=== PATIENT | female | born 1985 | race Caucasian/White ===

== ENCOUNTER 2016-12-12 23:09 | Emergency (ER) | payer OTHER ==
[~2016-12-12] VITALS: Ht 162.6 cm; Wt 60.8 kg
[~2016-12-12 23:09] MED LIST: BACTRIM DS1 TAB PO; CARISOPRODOL350 MG PO; CIPRO500 MG OR; CLEOCIN150 MG PO; CLINDAMYCIN300 M1 PO; DIFLUCAN150 MG PO; DILAUDID2 MG PO; DOLOGESIC OR; FLAGYL500 MG PO; FLEXERIL OR; FLORASTOR250 M1 PO; IBUPROFEN200 MG OR; KEFLEX500 M1 PO; LEVAQUIN500 MG PO; MACRODANTIN100 MG PO; METHADONE5 M1 PO; METRONIDAZOL0.75 % VA; NAPROSYN500 MG OR; NITROSTAT0.4 MG PO; NO HOME MEDS; NO MEDS; PHENERGAN25 MG/TAB PO; PRENATAL1 TA1 PO; TRAMADOL HCL50 MG PO; TYLENOL PM OR; ULTRAM50 M1 PO; ULTRAM50 MG OR
[2016-12-12] MEDS ORDERED: FOLIC ACI1 PO (23:32)
[2016-12-13 00:35] LABS: HEMATOCRIT 32.6 % (37.0-47.0); HEMOGLOBIN 10.3 g/dl (12.0-16.0); IMMATURE GRANULOCYTES 0.1 % (0.0-1.0); MEAN CELL VOLUME 78.7 fL CALC (80.0-100.0); MEAN CORPUSCULAR HGB 24.9 pG CALC (26.0-32.0); MEAN CORPUSCULAR HGB CONC 31.6 g/L CALC (32.0-36.0); NEUT# 3.07 thou/uL (2.00-7.15); RED BLOOD COUNT 4.14 mill/uL (4.20-5.60); RED CELL DISTRI WIDTH 13.2 % (11.5-15.5)
[2016-12-13 00:52] LABS: ALBUMIN 3.9 g/dL (3.2-5.0); ALKALINE PHOSPHATASE 112 u/l (38-126); ANION GAP 18 (6-22 (CALC)); BILIRUBIN, TOTAL 0.4 mg/dL (0.0-1.4); BUN 15 mg/dL (7-17); BUN/CREATININE RATIO 21 (12-20 (CALC)); CALCIUM 9.5 mg/dL (8.4-10.2); CARBON DIOXIDE 26 mmol/l (22-30); CHLORIDE 104 mmol/l (95-108); CREATININE 0.7 mg/dL (0.5-1.0); GFR > 60 ML/MIN (>=60 (CALC)); GFR FOR AFR.AMER. > 60 ML/MIN (>=60 (CALC)); GLUCOSE 123 mg/dL (65-105); SGOT/AST 29 u/l (14-36); SGPT/ALT 31 u/l (9-52); SODIUM 144 mmol/l (137-146); TOTAL PROTEIN 7.9 g/dL (6.3-8.2)
[2016-12-13] MEDS ORDERED: BACTRIM DS1 TAB PO (01:29)
[2016-12-13 05:07] VITALS: BP 128/81
== END 2016-12-13 05:07 | disposition home or self-care (01) | DRG 603 ==
LOC: ED 23:09
PROVIDERS: Emergency Medicine
DX: L02.413 Cutaneous abscess of right upper limb (principal); F11.90 Opioid use, unspecified, uncomplicated; R50.9 Fever, unspecified

== ENCOUNTER 2019-02-09 22:33 | Emergency (ER) | payer SELFPAY ==
[~2019-02-09] VITALS: Ht 162.6 cm; Wt 90.9 kg
[~2019-02-09 22:33] MED LIST changes: +FOLIC ACI1 PO
[2019-02-10] LABS: URINE BILIRUBIN - DIPSTICK NEGATIVE (NEGATIVE); URINE BLOOD DIPSTICK SMALL (NEGATIVE); URINE GLUCOSE - DIPSTICK NEGATIVE (NEGATIVE); URINE KETONE NEGATIVE (NEGATIVE); URINE LEUK ESTERASE TRACE (NEGATIVE); URINE PH 5.5 (4.5-8.0); URINE PROTEIN - DIPSTICK TRACE mg/dL (NEG-TRACE)
[2019-02-10 00:01] LABS: IMMATURE GRANULOCYTES 0.9 % (0.0-5.0); MEAN CORPUSCULAR HGB CONC 32.3 g/L CALC (32.0-36.0); NEUT# 6.84 thou/uL (2.00-7.15); RED BLOOD COUNT 4.7 mill/uL (4.20-5.60); RED CELL DISTRI WIDTH 12.6 % (11.5-15.5)
[2019-02-10 00:09] LABS: URINE COLOR DK. YELLOW; URINE NITRITE - DIPSTICK POSITIVE (Negative)
[2019-02-10 00:10] LABS: URINE BACTERIA MANY hpf; URINE EPITHELIAL CELLS MODERATE EPI/hpf (0-FEW)
[2019-02-10 00:12] LABS: ALBUMIN 4.1 g/dL (3.2-5.0); AMYLASE 46 u/l (30-110); ANION GAP 15 (6-22 (CALC)); BILIRUBIN, TOTAL 0.6 mg/dL (0.0-1.4); BUN 7 mg/dL (7-17); BUN/CREATININE RATIO 11 (12-20 (CALC)); CARBON DIOXIDE 28 mmol/l (22-30); CHLORIDE 100 mmol/l (95-108); CREATININE 0.7 mg/dL (0.5-1.0); GFR > 60 ML/MIN (>=60 (CALC)); GFR FOR AFR.AMER. > 60 ML/MIN (>=60 (CALC)); LIPASE 106 u/l (23-300); POTASSIUM 3.6 mmol/l (3.5-5.1); SODIUM 140 mmol/l (137-146); TOTAL PROTEIN 7.4 g/dL (6.3-8.2)
[2019-02-10 00:14] LABS: ALKALINE PHOSPHATASE 241 u/l (38-126); HEMATOCRIT 39.3 % (37.0-47.0); HEMOGLOBIN 12.7 g/dl (12.0-16.0); MEAN CELL VOLUME 83.6 fL CALC (80.0-100.0); SGOT/AST 59 u/l (14-36)
[2019-02-10 03:45] VITALS: BP 130/64
== END 2019-02-10 03:41 | disposition left against medical advice (07) | DRG 395 ==
LOC: ED 22:33 → ED-I 02-10 03:12 → ED 02-10 03:41 → ED-I 02-10 12:44
PROVIDERS: Emergency Medicine
DX: K46.9 Unspecified abdominal hernia without obstruction or gangrene (principal); F17.210 Nicotine dependence, cigarettes, uncomplicated; Z91.19 Patient's noncompliance with other medical treatment and regimen; R82.71 Bacteriuria
CPT/HCPCS: J1956; Q9967

== ENCOUNTER 2019-02-10 10:50 | Inpatient (IN) | payer SELFPAY ==
[2019-02-10] VITALS (8 sets, daily range): BP systolic 103–132; BP diastolic 68–89
[~2019-02-10] VITALS: Ht 162.6 cm; Wt 95.0 kg
--- NOTE | 2019-02-10 10:59 | NUR ---
PT TO ROOM W/STEADY GAIT
--- NOTE | 2019-02-10 11:32 | NUR ---
PT SEEN BY EDP, HERNIA NOTED TO ABDOMINAL REGION.
--- NOTE | 2019-02-10 12:16 | NUR ---
PT DIFFICULT IV STICK PER IV DRUG ABUSE. PT STATES SHE USES CRUSHED OXY AND MOST RECENTLY USED ABOUT A WEEK AGO. PT PROVIDED TORADOL FOR PAIN ORDERED BY EDP.
--- NOTE | 2019-02-10 12:27 | NUR ---
PT LEAVES WITH OR TEAM KENN.
[2019-02-10 12:36] LABS: COCAINE NEGATIVE (NEGATIVE); TETRAHYDROCANNABIONOL NEGATIVE (NEGATIVE)
[2019-02-10 12:37] LABS: BARBITURATES NEGATIVE (NEGATIVE); METHADONE NEGATIVE (NEGATIVE); OXCYCODONE POSITIVE (NEGATIVE); TRICYLIC ANTIDEPRESSANTS NEGATIVE (NEGATIVE)
--- NOTE | 2019-02-10 15:53 | NUR ---
PT TRANSPORTED TO UNIT VIA STRETCHER AND TRANSFERRED TO BED BY OR STAFF. ALERT AND ORIENTED X 3, ASKING IF SHE MAY GO HOME NOW AND ADVISED OF REASON SHE CANT. TRIPLE LUMEN CATHETER IN PLACE TO RIGHT JUGULAR WITH LR INFUSING, MIDLINE INCISION TO ABD APPROXIMATED WITH SURGICAL GLUE, DRESSING TO LEFT FOREARM IN PLACE WITH SANTY WRAP. OR STAFF REPORTED INCISION AND DRAINAGE OF ABSCESS TO LFA AND VENTRAL HERNIA REPAIR TO ABDOMEN, IV FLUIDS IN = 450 AND OUT = 250. DAILY CATHETER IN PLACE WITH CLEAR YELLOW URINE. ORIENTED TO ROOM AND CALL ALEXANDER, REQUESTING FOOD AT THIS TIME, WILL CONTINUE TO MONITOR. PT ARRIVED ON UNIT @ 0320.
--- NOTE | 2019-02-10 16:49 | NUR ---
In to start peripheral IV as requested by Dr Olsen. Pt refused to be "poked" again as she had been stuck several times in the ER, states she already has a working IV (central line) and there is no need to be stuck again. Pt states she is aware that the police will be called if she leaves with a peripheral and/or a central line.
[2019-02-10 17:08] LABS: HEMATOCRIT 35.4 % (37.0-47.0); HEMOGLOBIN 11.1 g/dl (12.0-16.0); IMMATURE GRANULOCYTES 0.8 % (0.0-5.0); MEAN CELL VOLUME 86.6 fL CALC (80.0-100.0); MEAN CORPUSCULAR HGB 27.1 pG CALC (26.0-32.0); MEAN CORPUSCULAR HGB CONC 31.4 g/L CALC (32.0-36.0); NEUT# 4.48 thou/uL (2.00-7.15); RED BLOOD COUNT 4.09 mill/uL (4.20-5.60); RED CELL DISTRI WIDTH 12.8 % (11.5-15.5)
[2019-02-10 18:11] LABS: ALKALINE PHOSPHATASE 167 u/l (38-126); ANION GAP 10 (6-22 (CALC)); BILIRUBIN, TOTAL 0.4 mg/dL (0.0-1.4); BUN 6 mg/dL (7-17); BUN/CREATININE RATIO 10 (12-20 (CALC)); CARBON DIOXIDE 24 mmol/l (22-30); CHLORIDE 107 mmol/l (95-108); CREATININE 0.6 mg/dL (0.5-1.0); GFR > 60 ML/MIN (>=60 (CALC)); GFR FOR AFR.AMER. > 60 ML/MIN (>=60 (CALC)); POTASSIUM 3.7 mmol/l (3.5-5.1); SGOT/AST 39 u/l (14-36); SODIUM 138 mmol/l (137-146)
--- NOTE | 2019-02-10 19:35 | NUR ---
REPORT RECEIVED FROM SARAHI MARCUM. PT RESTING IN BED, WITH EYES CLOSED. NO S/S OF DISTRESS AT THIS TIME. SAFETY PRECAUTIONS IN PLACE. WILL CONTINUE TO MONITOR.
--- NOTE | 2019-02-10 20:32 | NUR ---
PT RESTING IN BED, PT SEEMS DROWSY. RESPIRATIONS ARE SHIRLEY AND UNLABORED ON RA. LUNGS SOUND CLEAR. PEDAL PULSES STRONG. PT DENIES ANY NEEDS AT THIS TIME. NICOTINE PATCH APPLIED TO UPPER RIGHT ARM PER EMAR ORDERS. INCISION TO ABD CLEAN DRY AND INTACT. DAILY DRAINING TO GRAVITY. SAFETY PRECAUTIONS IN PLACE. WILL CONTINUE TO MONITOR.
--- NOTE | 2019-02-11 00:20 | NUR ---
PT RESTING IN BED. RESPIRATIONS EVEN AND UNLABORED ON RA. NO S/S OF DISTRESS. WILL CONTINUE TO MONITOR.
[2019-02-11 03:58] VITALS: BP 131/83
--- NOTE | 2019-02-11 04:09 | NUR ---
PT MOANING IN PAIN STATING " I'M DETOXING". ASSISTED PT TO REPOSITION AND PROVIDED HER WITH WARM PACKS. PT CONTINUES TO MOAN STATING "I HURT I'M GOING TO THROW UP, I'M DETOXING." TO BE NOTIFIED. WILL CONTINUE TO MONITOR.
[2019-02-11 05:03] LABS: HEMOGLOBIN 12.7 g/dl (12.0-16.0); IMMATURE GRANULOCYTES 0.6 % (0.0-5.0); MEAN CELL VOLUME 84.9 fL CALC (80.0-100.0); MEAN CORPUSCULAR HGB CONC 31.8 g/L CALC (32.0-36.0); NEUT# 6.71 thou/uL (2.00-7.15); RED BLOOD COUNT 4.71 mill/uL (4.20-5.60); RED CELL DISTRI WIDTH 12.8 % (11.5-15.5)
[2019-02-11 05:21] LABS: ALBUMIN 3.6 g/dL (3.2-5.0); ALKALINE PHOSPHATASE 201 u/l (38-126); AMYLASE 51 u/l (30-110); ANION GAP 10 (6-22 (CALC)); BILIRUBIN, TOTAL 0.5 mg/dL (0.0-1.4); BUN 2 mg/dL (7-17); BUN/CREATININE RATIO 4 (12-20 (CALC)); CARBON DIOXIDE 24 mmol/l (22-30); CHLORIDE 109 mmol/l (95-108); CREATININE 0.6 mg/dL (0.5-1.0); GFR > 60 ML/MIN (>=60 (CALC)); GFR FOR AFR.AMER. > 60 ML/MIN (>=60 (CALC)); LIPASE 44 u/l (23-300); MAGNESIUM 1.8 mg/dL (1.6-2.3); POTASSIUM 4.1 mmol/l (3.5-5.1); SGOT/AST 38 u/l (14-36); SODIUM 139 mmol/l (137-146); TOTAL PROTEIN 6.9 g/dL (6.3-8.2)
--- NOTE | 2019-02-11 07:00 | NUR ---
SHIFT CHANGE REPORT, PT SLEEPING SOUNDLY, AROUSES TO GROSS VERBAL STIMULI, ORIENTED, NO C/O DISCOMFORT AT THIS TIME, OFFERED TO SHOWER BUT STATED SHE WILL SHOWER LATER WHEN HER MOTHER ARRIVES, CALL ALEXANDER IN REACH.
[2019-02-11 07:36] VITALS: BP 113/77
--- NOTE | 2019-02-11 11:06 | NUR ---
PT SLEEPING SOUNDLY SINCE BREAKFAST, AWAKENED, AMBULATED IN HALLWAYS THEN BACK TO ROOM. EDUCATED ON RISK FOR INFECTION POST SURGERY AND WITH CATHETER PLACEMENT, RISK FOR PNEUMONIA AND RISK FOR CONSTIPATION. INCENTIVE SPIROMETER GIVEN AND PT DEMONSTRATED CORRECT USAGE AND ENCORAGED TO USE EVERY HOUR WHILE AWAKE, DAILY CATHETER REMOVED, PAIN CONCERN ADDRESSED. MOTHER JUST ARRIVED IN ROOM, WILL CONTINUE TO MONITOR.
--- NOTE | 2019-02-11 12:00 | NUR ---
MEDICAL TEAM ROUNDED, DISCUSSED PLAN OF CARE AND WROTE ORDERS
--- NOTE | 2019-02-11 14:38 | NUR ---
S: CARMEL GARSIA is a 33 F who presents with CELLULITIS. She has a history of MULTIPLE SKIN ABSCESSES. All medications in patient's chart were reviewed. O: VS: BP 113/77, P 78, RR 18,T 97 W 95kg, HT 64IN, Scr= 0.6,CrCl= >100ml/min> A: Blood culture <is pending/show> which is sensitive to <>. Urine culture <is pending/show> which is sensitive to <>. P: Vancomycin ordered for pharmacy to dose. Start Vancomycin 1750MG IV Q12H. Vancomycin trough is drawn before the 4th dose on 02/12/19 @1230. Vancomycin goal trough is between <10-15 mcg/ml>. Pharmacy will follow and or advise on antibiotics use as needed. PRANEETH CURTISD
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
[2019-02-11 15:21] VITALS: BP 117/77
--- NOTE | 2019-02-11 16:10 | NUR ---
LYING IN BED, ADVISED TO GET OOB AND AMBULATE, DRESSING TO LFA CHANGED, WILL CONTINUE TO MONITOR.
--- NOTE | 2019-02-11 17:47 | NUR ---
AMBULATED 2 HALLWAYS WITH SUPERVISION, HAS NOT URINATED YET SINCE CATHETER REMOVED @ 1100, WILL CONTINUE TO MONITOR.
--- NOTE | 2019-02-11 19:05 | NUR ---
REPORT RECEIVED FROM SARAHI MARCUM. PT RESTING IN BED ALERT AND ORIENTED, FAMILY AT BEDSIDE. NO S/S OF DISTRESS AT THIS TIME. WILL CONTINUE TO MONITOR.
[2019-02-11 19:15] VITALS: BP 120/78
--- NOTE | 2019-02-11 23:39 | NUR ---
PT SITTING ON THE SIDE OF THE BED. PT STATES "I FEEL NAUSEOUS, AND I HURT". PT MEDICATED PER EMAR ORDERS. WILL CONTINUE TO MONITOR.
[2019-02-12 04:07] VITALS: BP 100/67
--- NOTE | 2019-02-12 04:27 | NUR ---
PT RESTING IN BED. NO S/S OF DISTRESS AT THIS TIME. WILL CONTINUE TO MONITOR.
[2019-02-12 05:28] LABS: HEMATOCRIT 40.6 % (37.0-47.0); IMMATURE GRANULOCYTES 0.7 % (0.0-5.0); MEAN CELL VOLUME 86.2 fL CALC (80.0-100.0); MEAN CORPUSCULAR HGB 27.6 pG CALC (26.0-32.0); NEUT# 4.93 thou/uL (2.00-7.15); RED BLOOD COUNT 4.71 mill/uL (4.20-5.60); RED CELL DISTRI WIDTH 12.9 % (11.5-15.5)
[2019-02-12 05:46] LABS: ALBUMIN 3.4 g/dL (3.2-5.0); ALKALINE PHOSPHATASE 205 u/l (38-126); ANION GAP 13 (6-22 (CALC)); BILIRUBIN, TOTAL 0.4 mg/dL (0.0-1.4); BUN 5 mg/dL (7-17); BUN/CREATININE RATIO 8 (12-20 (CALC)); CARBON DIOXIDE 26 mmol/l (22-30); CHLORIDE 105 mmol/l (95-108); CREATININE 0.7 mg/dL (0.5-1.0); GFR > 60 ML/MIN (>=60 (CALC)); GFR FOR AFR.AMER. > 60 ML/MIN (>=60 (CALC)); POTASSIUM 3.9 mmol/l (3.5-5.1); SGOT/AST 39 u/l (14-36); SODIUM 140 mmol/l (137-146); TOTAL PROTEIN 6.6 g/dL (6.3-8.2)
[2019-02-12 08:10] VITALS: BP 112/81
--- NOTE | 2019-02-12 08:10 | NUR ---
ASSESSMENT IS COMPLETED: IV SITE IS FREE FROM REDNESS OR EDEMA. HR IS REG,PULSES ARE STRONG X4, ABD IS SOFT WITH ACTIVE BS. BREATH SOUNDS ARE CLEAR BILATERALLY, DRESSING ON LEFT ARM IS CDI. ABD INCISION IS CDI. C/O ABD PAIN MEDICATION WAS GIVEN.
[2019-02-12] MEDS ORDERED: KEFLEX500 MG PO (12:06)
--- NOTE | 2019-02-12 12:15 | NUR ---
PT IS RESTING IN BED WITH NO DISTRESS NOTED. IV SITE IS FREE FROM REDNESS OR EDEMA. WAITING ON DISCHARGE INSTRUCTION TO GO HOME.
--- NOTE | 2019-02-12 14:00 | NUR ---
Discharge instructions given. Patient verbalizes understanding of same. Discharged in stable condition via Ambulatory to Home with family. All belongings sent with pt.
--- NOTE | 2019-02-12 14:03 | NUR ---
IV SITE DISCONTINUED CATHETER INTACT. NO REDNESS OR EDEMA. DISCHARGE INSTRUCTIONS GIVEN AND VERBALIZED UNDERSTANDING,
--- NOTE | 2019-02-12 14:04 | NUR ---
RIJ TLC FLUSHED AND REMOVED, CATH TIP INTACT. PT TOLERATED WELL. DRESSING APPLED.
== END 2019-02-12 14:02 | disposition home or self-care (01) | DRG 354 ==
LOC: ED 10:50 → ED-I 11:20 → ED 11:20 → ED-I 11:24 → ED 11:39 → MS2 11:40 → UNDODEPER 12:56 → MS2 02-11 12:37
PROVIDERS: Nurse Practitioner Family; ADMIT Internal Medicine Nephrology; ATTEND Internal Medicine Nephrology
PROC: 0WQF0ZZ Repair Abdominal Wall, Open Approach (ICD-10-PCS; principal; 2019-02-10)
PROC: 0H9EXZZ Drainage of Left Lower Arm Skin, External Approach (ICD-10-PCS; 2019-02-10)
PROC: 02HV33Z Insertion of Infusion Device into Superior Vena Cava, Percutaneous Approach (ICD-10-PCS; 2019-02-10)
DX: K43.6 Other and unspecified ventral hernia with obstruction, without gangrene (principal); L02.414 Cutaneous abscess of left upper limb; L03.115 Cellulitis of right lower limb; N39.0 Urinary tract infection, site not specified; F11.23 Opioid dependence with withdrawal; F15.23 Other stimulant dependence with withdrawal; F19.239 Other psychoactive substance dependence with withdrawal, unspecified; F17.210 Nicotine dependence, cigarettes, uncomplicated; B19.20 Unspecified viral hepatitis C without hepatic coma; B96.20 Unspecified Escherichia coli [E. coli] as the cause of diseases classified elsewhere; Z86.718 Personal history of other venous thrombosis and embolism
CPT/HCPCS: J2710; J3370

== ENCOUNTER 2019-04-30 17:39 | Emergency (ER) | payer SELFPAY ==
[~2019-04-30] VITALS: Ht 162.6 cm; Wt 86.0 kg
[~2019-04-30 17:39] MED LIST changes: +KEFLEX500 MG PO
[2019-04-30] MEDS ORDERED: BACTRIM DS1 TAB PO (18:59)
[2019-04-30] MEDS ORDERED: OMNI-PAC300 MG PO (18:59)
[2019-04-30 19:06] VITALS: BP 120/78
== END 2019-04-30 19:08 | disposition left against medical advice (07) | DRG 603 ==
LOC: ED 17:39
DX: L03.311 Cellulitis of abdominal wall (principal); L03.114 Cellulitis of left upper limb; L53.9 Erythematous condition, unspecified; F17.210 Nicotine dependence, cigarettes, uncomplicated; F15.90 Other stimulant use, unspecified, uncomplicated; Z91.19 Patient's noncompliance with other medical treatment and regimen

== ENCOUNTER 2019-05-02 16:33 | Emergency (ER) | payer SELFPAY ==
[~2019-05-02] VITALS: Ht 162.6 cm; Wt 70.0 kg
[~2019-05-02 16:33] MED LIST changes: +OMNI-PAC300 MG PO
[2019-05-02 17:26] LABS: HEMATOCRIT 35.3 % (37.0-47.0); HEMOGLOBIN 11.4 g/dl (12.0-16.0); IMMATURE GRANULOCYTES 0.4 % (0.0-5.0); MEAN CORPUSCULAR HGB 25.9 pG CALC (26.0-32.0); MEAN CORPUSCULAR HGB CONC 32.3 g/L CALC (32.0-36.0); NEUT# 10.57 thou/uL (2.00-7.15); RED BLOOD COUNT 4.4 mill/uL (4.20-5.60); RED CELL DISTRI WIDTH 12.8 % (11.5-15.5)
[2019-05-02 17:28] LABS: MEAN CELL VOLUME 80.2 fL CALC (80.0-100.0)
[2019-05-02 17:46] LABS: ALBUMIN 3.8 g/dL (3.2-5.0); ALKALINE PHOSPHATASE 103 u/l (38-126); ANION GAP 14 (6-22 (CALC)); BILIRUBIN, TOTAL 0.3 mg/dL (0.0-1.4); BUN 10 mg/dL (7-17); BUN/CREATININE RATIO 18 (12-20 (CALC)); CARBON DIOXIDE 25 mmol/l (22-30); CHLORIDE 101 mmol/l (95-108); CREATININE 0.6 mg/dL (0.5-1.0); GFR > 60 ML/MIN (>=60 (CALC)); GFR FOR AFR.AMER. > 60 ML/MIN (>=60 (CALC)); SGOT/AST 29 u/l (14-36); SODIUM 137 mmol/l (137-146); TOTAL PROTEIN 7.5 g/dL (6.3-8.2)
[2019-05-02 17:48] LABS: POTASSIUM 2.9 mmol/l (3.5-5.1)
[2019-05-02] MEDS ORDERED: K-DUR/KLOR-CON20 MEQ PO (17:58)
[2019-05-02] MEDS ORDERED: BACTRIM DS1 TAB PO (17:58)
[2019-05-02 18:50] VITALS: BP 133/79
== END 2019-05-02 18:57 | disposition home or self-care (01) | DRG 603 ==
LOC: ED 16:33
PROC: 0H9EXZZ Drainage of Left Lower Arm Skin, External Approach (ICD-10-PCS; principal; 2019-05-02)
DX: L02.414 Cutaneous abscess of left upper limb (principal); L03.311 Cellulitis of abdominal wall; L53.9 Erythematous condition, unspecified; F17.200 Nicotine dependence, unspecified, uncomplicated; B96.20 Unspecified Escherichia coli [E. coli] as the cause of diseases classified elsewhere; T36.96XA Underdosing of unspecified systemic antibiotic, initial encounter; Z91.128 Patient's intentional underdosing of medication regimen for other reason; F15.90 Other stimulant use, unspecified, uncomplicated

== ENCOUNTER 2019-05-03 16:32 | Emergency (ER) | payer SELFPAY ==
[~2019-05-03] VITALS: Ht 162.6 cm; Wt 84.1 kg
[~2019-05-03 16:32] MED LIST changes: +K-DUR/KLOR-CON20 MEQ PO
[2019-05-03 18:10] VITALS: BP 102/57
== END 2019-05-03 18:10 | disposition home or self-care (01) | DRG 603 ==
LOC: ED 16:32
DX: L03.116 Cellulitis of left lower limb (principal); Z48.01 Encounter for change or removal of surgical wound dressing; F15.90 Other stimulant use, unspecified, uncomplicated; F17.200 Nicotine dependence, unspecified, uncomplicated; Z91.19 Patient's noncompliance with other medical treatment and regimen

== ENCOUNTER 2019-05-05 16:14 | Emergency (ER) | payer SELFPAY ==
[~2019-05-05] VITALS: Ht 162.6 cm; Wt 76.4 kg
[2019-05-05 17:00] VITALS: BP 116/75
== END 2019-05-05 17:00 | disposition home or self-care (01) | DRG 951 ==
LOC: ED 16:14
DX: Z48.01 Encounter for change or removal of surgical wound dressing (principal)

== ENCOUNTER 2019-06-05 09:51 | Observation (INO) | payer SELFPAY ==
[~2019-06-05] VITALS: Ht 162.6 cm; Wt 87.0 kg
--- NOTE | 2019-06-05 10:35 | NUR ---
TO ROOM 12 VIA WHEELCHAIR
--- NOTE | 2019-06-05 11:00 | NUR ---
PT AMBUALATED TO BATHROOM WITH A STEADY GAIT TO CHANGE AND PROVIDE URINE SAMPLE.
--- NOTE | 2019-06-05 11:45 | NUR ---
ATTEMPTED IV STICK X2 WITHOUT SUCCESS, ENCOUNTERED VERY SCARRED VEINS AND INFLAMMATION AROUND POTENTIAL INSERTION SITES UP AND DOWN BOTH ARMS. CAMI MCMILLAN APRN UPDATED.
--- NOTE | 2019-06-05 11:51 | NUR ---
CHARANJIT ALMANZA AT BEDSIDE TO ATTEMPT IV ACCESS.
[2019-06-05 11:56] LABS: URINE BILIRUBIN - DIPSTICK NEGATIVE (NEGATIVE); URINE BLOOD DIPSTICK NEGATIVE (NEGATIVE); URINE COLOR YELLOW; URINE GLUCOSE - DIPSTICK NEGATIVE (NEGATIVE); URINE KETONE NEGATIVE (NEGATIVE); URINE LEUK ESTERASE NEGATIVE (NEGATIVE); URINE NITRITE - DIPSTICK NEGATIVE (Negative); URINE PROTEIN - DIPSTICK NEGATIVE (NEG-TRACE); URINE UROBILINOGEN - DIPSTICK 0.2 E.U./dL (0.2)
--- NOTE | 2019-06-05 12:09 | NUR ---
UNABLE TO ESTABLISH IV SITE. BLOOD COLLECTED WILL GIVE PO ABX.
--- NOTE | 2019-06-05 12:12 | NUR ---
REPORT RECEIVED FROM SARAHI MCQUEEN.
--- NOTE | 2019-06-05 12:12 | NUR ---
ERPORT TO SARAHI BRODERICK.
[2019-06-05 12:21] LABS: HEMATOCRIT 36.2 % (37.0-47.0); HEMOGLOBIN 11.4 g/dl (12.0-16.0); IMMATURE GRANULOCYTES 2.2 % (0.0-5.0); MEAN CELL VOLUME 79.9 fL CALC (80.0-100.0); MEAN CORPUSCULAR HGB 25.2 pG CALC (26.0-32.0); MEAN CORPUSCULAR HGB CONC 31.5 g/L CALC (32.0-36.0); PLATELET COUNT 284 thou/uL (130-400); RED BLOOD COUNT 4.53 mill/uL (4.20-5.60); RED CELL DISTRI WIDTH 13.9 % (11.5-15.5)
[2019-06-05 12:43] LABS: BAND 13 % (0-8); MANUAL DIFFERENTIAL YES
[2019-06-05 12:44] LABS: ALBUMIN 4.1 g/dL (3.2-5.0); ALKALINE PHOSPHATASE 111 u/l (38-126); ANION GAP 15 (6-22 (CALC)); BUN 15 mg/dL (7-17); BUN/CREATININE RATIO 20 (12-20 (CALC)); CARBON DIOXIDE 24 mmol/l (22-30); CHLORIDE 100 mmol/l (95-108); CREATININE 0.8 mg/dL (0.5-1.0); GFR > 60 ML/MIN (>=60 (CALC)); GFR FOR AFR.AMER. > 60 ML/MIN (>=60 (CALC)); POTASSIUM 4.1 mmol/l (3.5-5.1); SGOT/AST 32 u/l (14-36); SODIUM 135 mmol/l (137-146); TOTAL PROTEIN 7.9 g/dL (6.3-8.2)
[2019-06-05 12:45] LABS: BILIRUBIN, TOTAL 1.1 mg/dL (0.0-1.4)
--- NOTE | 2019-06-05 12:50 | NUR ---
PATIENT RESTING ON STRETCHER, NOTED TO BE DROWSY. REDNESS NOTED TO RIGHT INNER THIGH AND LEFT POSTERIOR THIGH. REPORTS ONSET A FEW DAYS AGO.
--- NOTE | 2019-06-05 12:53 | NUR ---
CHARANJIT ALMANZA AT BEDSIDE TO DISCUSS RESULTS WITH PATIENT AND POSSIBLE ADMIT.
[2019-06-05 13:19] LABS: BARBITURATES NEGATIVE (NEGATIVE); COCAINE NEGATIVE (NEGATIVE); METHADONE NEGATIVE (NEGATIVE); TETRAHYDROCANNABIONOL NEGATIVE (NEGATIVE); TRICYLIC ANTIDEPRESSANTS NEGATIVE (NEGATIVE)
[2019-06-05 13:20] LABS: OXCYCODONE POSITIVE (NEGATIVE)
--- NOTE | 2019-06-05 14:06 | NUR ---
REPORT CALLED TO LIZA FUNG.
--- NOTE | 2019-06-05 14:08 | NUR ---
RXO RN AT BEDSIDE TO ATTEMPT AND ESTABLISH IV SITE WITH ASSISTANCE FROM ULTRASOUND. PATIENT YELLING OUT IN PAIN STATES "GET THIS NEEDLE OUT I WANT TO LEAVE." INFORMED.
--- NOTE | 2019-06-05 14:20 | NUR ---
PATIENT AGREES TO STAY IF MIDLINE PLACE.
--- NOTE | 2019-06-05 14:45 | NUR ---
MULTIPLE ATTMEPTS MADE TO OBTAIN IV ACCESS, WITHOUT SUCCESS. PT CURSING AND ALTERNATES BETWEEN TALKINGON TELEPHONE AND YESSLING AT STAFF FOR INABILITY TO OBTAIN IV ACCESS. STATES SHE IS FUCKING LEAVING SHE AIN'T GONNA STAY IF WE CAN'T GET A FUCKIING LINE WHATS THE POINT, I GET ONE ALL THE TIME WHEN I USE I DON'T KNOW WHY YOU ALL CAN'T GET ONE....ATTEMPTS TO EXPLAIN TO PATIENT THAT SHOOTING UP DRUGS AND STARTING AN IVARE DIFFERENT, PT JUST MUTTERS AND IGNORES US ANS STATES WELL IT FUCKING HURTS AND I'M DONE.
[2019-06-05 14:48] VITALS: BP 98/56
--- NOTE | 2019-06-05 14:48 | NUR ---
PATIENT REFUSING TO STAY, OUT OF DEPARTMENT VIA WHEELCHAIR. Patient decides to leave AMA. Multiple attempts made to ecourage patient to remain here for continued treatment. Explained to patient all risks of leaving against medical advice including . Pt verbalized understanding of all risks. Pt also encouraged to return to [facility] at any time, especially if symptoms continue or become worse. Pt verbalized understanding.
== END 2019-06-05 14:48 | disposition left against medical advice (07) | DRG 603 ==
LOC: ED 09:51 → MS2 13:03 → ED 13:16 → ED-I 13:16 → ED 13:17 → ED-I 13:17 → MS2 14:48
PROVIDERS: Family Medicine; ADMIT Internal Medicine; ATTEND Internal Medicine
DX: L03.115 Cellulitis of right lower limb (principal); L03.114 Cellulitis of left upper limb; F19.20 Other psychoactive substance dependence, uncomplicated; Z53.29 Procedure and treatment not carried out because of patient's decision for other reasons

== ENCOUNTER 2019-07-21 11:50 | Emergency (ER) | payer SELFPAY ==
[~2019-07-21] VITALS: Ht 162.6 cm; Wt 90.0 kg
[2019-07-21] MEDS ORDERED: BACTRIM DS1 TAB PO ×2 (12:14→14:06)
[2019-07-21] MEDS ORDERED: CEPHALEXIN500 MG PO (12:15)
[2019-07-21] MEDS ORDERED: LORTAB 1010 MG PO (14:06)
[2019-07-21 14:12] LABS: HEMATOCRIT 34.4 % (37.0-47.0); HEMOGLOBIN 10.7 g/dl (12.0-16.0); IMMATURE GRANULOCYTES 1.8 % (0.0-5.0); MEAN CELL VOLUME 78.4 fL CALC (80.0-100.0); MEAN CORPUSCULAR HGB 24.4 pG CALC (26.0-32.0); MEAN CORPUSCULAR HGB CONC 31.1 g/L CALC (32.0-36.0); NEUT# 9.86 thou/uL (2.00-7.15); RED BLOOD COUNT 4.39 mill/uL (4.20-5.60); RED CELL DISTRI WIDTH 14.8 % (11.5-15.5)
[2019-07-21 14:23] LABS: ALBUMIN 3.8 g/dL (3.2-5.0); ANION GAP 17 (6-22 (CALC)); BUN 9 mg/dL (7-17); BUN/CREATININE RATIO 13 (12-20 (CALC)); CARBON DIOXIDE 24 mmol/l (22-30); CHLORIDE 99 mmol/l (95-108); CREATININE 0.7 mg/dL (0.5-1.0); GFR > 60 ML/MIN (>=60 (CALC)); GFR FOR AFR.AMER. > 60 ML/MIN (>=60 (CALC)); POTASSIUM 4.8 mmol/l (3.5-5.1); SGOT/AST 30 u/l (14-36); SODIUM 135 mmol/l (137-146); TOTAL PROTEIN 8.4 g/dL (6.3-8.2)
[2019-07-21 14:24] LABS: ALKALINE PHOSPHATASE 199 u/l (38-126); BILIRUBIN, TOTAL 0.6 mg/dL (0.0-1.4)
[2019-07-21 14:26] VITALS: BP 118/90
== END 2019-07-21 14:26 | disposition home or self-care (01) | DRG 603 ==
LOC: ED 11:50
PROVIDERS: Emergency Medicine
DX: L02.414 Cutaneous abscess of left upper limb (principal)

== ENCOUNTER 2019-07-22 17:36 | Emergency (ER) | payer SELFPAY ==
[~2019-07-22] VITALS: Ht 162.6 cm; Wt 80.0 kg
[~2019-07-22 17:36] MED LIST changes: +CEPHALEXIN500 MG PO; +LORTAB 1010 MG PO
[2019-07-22 18:23] VITALS: BP 138/74
== END 2019-07-22 18:22 | disposition home or self-care (01) | DRG 951 ==
LOC: ED 17:36
DX: Z48.01 Encounter for change or removal of surgical wound dressing (principal); F19.20 Other psychoactive substance dependence, uncomplicated; F17.200 Nicotine dependence, unspecified, uncomplicated

== ENCOUNTER 2019-07-24 22:39 | Emergency (ER) | payer SELFPAY ==
[~2019-07-24] VITALS: Ht 162.6 cm; Wt 71.0 kg
[2019-07-25 00:04] VITALS: BP 115/70
== END 2019-07-25 00:04 | disposition home or self-care (01) | DRG 951 ==
LOC: ED 22:39
DX: Z48.01 Encounter for change or removal of surgical wound dressing (principal); F17.200 Nicotine dependence, unspecified, uncomplicated

== ENCOUNTER 2019-08-25 22:18 | Emergency (ER) | payer SELFPAY ==
[2019-08-25 23:14] VITALS: BP 117/72
== END 2019-08-25 23:05 | disposition left against medical advice (07) | DRG 395 ==
LOC: ED 22:18
DX: K46.9 Unspecified abdominal hernia without obstruction or gangrene (principal); F17.200 Nicotine dependence, unspecified, uncomplicated; F19.90 Other psychoactive substance use, unspecified, uncomplicated; Z86.718 Personal history of other venous thrombosis and embolism; Z91.19 Patient's noncompliance with other medical treatment and regimen

== ENCOUNTER 2019-09-03 | Emergency (ER) | payer SELFPAY ==
[2019-09-03] MEDS ORDERED: BACTRIM DS1 TAB PO (14:17)
== END 2019-09-03 15:32 | disposition home or self-care (01) | DRG 603 ==
PROC: 0H9DXZZ Drainage of Right Lower Arm Skin, External Approach (ICD-10-PCS; principal; 2019-09-03)
DX: L02.413 Cutaneous abscess of right upper limb (principal); F19.20 Other psychoactive substance dependence, uncomplicated; F17.210 Nicotine dependence, cigarettes, uncomplicated

== ENCOUNTER 2019-09-05 | Emergency (ER) | payer SELFPAY | END 2019-09-05 10:15 | disposition home or self-care (01) | DRG 951 | DX: Z48.01 Encounter for change or removal of surgical wound dressing (principal); F17.210 Nicotine dependence, cigarettes, uncomplicated ==

== ENCOUNTER 2019-10-16 22:57 | Emergency (ER) | payer SELFPAY ==
[2019-10-16 23:05] VITALS: BP 134/74
== END 2019-10-16 23:30 | disposition left against medical advice (07) | DRG 601 ==
LOC: ED 22:57
DX: N61.1 Abscess of the breast and nipple (principal); N61.0 Mastitis without abscess; F19.10 Other psychoactive substance abuse, uncomplicated; F17.210 Nicotine dependence, cigarettes, uncomplicated; Z91.19 Patient's noncompliance with other medical treatment and regimen

== ENCOUNTER 2019-11-04 10:43 | Emergency (ER) | payer SELFPAY ==
[~2019-11-04] VITALS: Ht 162.6 cm; Wt 71.0 kg
[2019-11-04] MEDS ORDERED: BACTRIM DS1 TAB PO (11:48)
[2019-11-04 11:52] VITALS: BP 120/74
== END 2019-11-04 11:52 | disposition home or self-care (01) | DRG 603 ==
LOC: ED 10:43
PROC: 0H9BXZZ Drainage of Right Upper Arm Skin, External Approach (ICD-10-PCS; principal; 2019-11-04)
PROC: 0H9DXZZ Drainage of Right Lower Arm Skin, External Approach (ICD-10-PCS; 2019-11-04)
DX: L02.413 Cutaneous abscess of right upper limb (principal); F19.10 Other psychoactive substance abuse, uncomplicated; F17.210 Nicotine dependence, cigarettes, uncomplicated; B95.61 Methicillin susceptible Staphylococcus aureus infection as the cause of diseases classified elsewhere

== ENCOUNTER 2019-11-30 | Emergency (ER) | payer SELFPAY ==
[2019-11-30] MEDS ORDERED: BACTRIM DS1 TAB PO (12:06)
[2019-11-30] MEDS ORDERED: CEPHALEXIN500 M1 PO (12:22)
== END 2019-11-30 12:42 | disposition home or self-care (01) | DRG 603 ==
PROC: 0H9HXZZ Drainage of Right Upper Leg Skin, External Approach (ICD-10-PCS; principal; 2019-11-30)
DX: L02.415 Cutaneous abscess of right lower limb (principal); B95.4 Other streptococcus as the cause of diseases classified elsewhere; F17.200 Nicotine dependence, unspecified, uncomplicated

== ENCOUNTER 2019-12-02 | Emergency (ER) | payer SELFPAY ==
[~2019-12-02] MED LIST changes: +CEPHALEXIN500 M1 PO
== END 2019-12-02 21:40 | disposition home or self-care (01) | DRG 951 ==
DX: Z48.01 Encounter for change or removal of surgical wound dressing (principal); F17.200 Nicotine dependence, unspecified, uncomplicated

== ENCOUNTER 2019-12-29 18:44 | Emergency (ER) | payer SELFPAY ==
[2019-12-29 18:55] VITALS: BP 135/77
[2019-12-29] MEDS ORDERED: BACTRIM DS1 TAB PO ×2 (19:29)
[2019-12-29] MEDS ORDERED: KEFLEX500 M1 PO ×2 (19:29)
== END 2019-12-29 19:28 | disposition home or self-care (01) | DRG 603 ==
LOC: ED 18:44
DX: L02.413 Cutaneous abscess of right upper limb (principal); F19.10 Other psychoactive substance abuse, uncomplicated; F17.210 Nicotine dependence, cigarettes, uncomplicated; Z86.14 Personal history of Methicillin resistant Staphylococcus aureus infection

== ENCOUNTER 2020-01-02 12:18 | Emergency (ER) | payer SELFPAY ==
[2020-01-02] MEDS ORDERED: BACTRIM DS1 TAB PO ×2 (12:57)
[2020-01-02 13:26] VITALS: BP 148/89
== END 2020-01-02 13:34 | disposition home or self-care (01) | DRG 603 ==
LOC: ED 12:18
PROC: 0H9DXZZ Drainage of Right Lower Arm Skin, External Approach (ICD-10-PCS; principal; 2020-01-02)
DX: L02.413 Cutaneous abscess of right upper limb (principal); F17.200 Nicotine dependence, unspecified, uncomplicated

== ENCOUNTER 2020-02-28 11:57 | Emergency (ER) | payer SELFPAY ==
[~2020-02-28] VITALS: Ht 162.6 cm; Wt 70.0 kg
[2020-02-28 13:14] LABS: HEMATOCRIT 34.4 % (37.0-47.0); HEMOGLOBIN 10.6 g/dl (12.0-16.0); IMMATURE GRANULOCYTES 0.3 % (0.0-5.0); MEAN CELL VOLUME 79.1 fL CALC (80.0-100.0); MEAN CORPUSCULAR HGB 24.4 pG CALC (26.0-32.0); MEAN CORPUSCULAR HGB CONC 30.8 g/dL CAL (32.0-36.0); NEUT# 8.13 thou/uL (2.00-7.15); RED BLOOD COUNT 4.35 mill/uL (4.20-5.60); RED CELL DISTRI WIDTH 14.2 % (11.5-15.5)
[2020-02-28 13:25] LABS: URINE BILIRUBIN - DIPSTICK NEGATIVE (NEGATIVE); URINE BLOOD DIPSTICK MODERATE (NEGATIVE); URINE COLOR YELLOW; URINE GLUCOSE - DIPSTICK NEGATIVE (NEGATIVE); URINE KETONE NEGATIVE (NEGATIVE); URINE LEUK ESTERASE NEGATIVE (NEGATIVE); URINE NITRITE - DIPSTICK NEGATIVE (Negative); URINE PH 5.5 (4.5-8.0); URINE PROTEIN - DIPSTICK NEGATIVE (NEG-TRACE); URINE SPECIFIC GRAVITY 1.025
[2020-02-28 13:27] LABS: URINE SQUAMOUS EPITHELIAL CELL FEW EPI/hpf (0-FEW)
[2020-02-28 13:28] LABS: ALBUMIN 4.1 g/dL (3.2-5.0); ALKALINE PHOSPHATASE 105 u/l (38-126); BILIRUBIN, TOTAL 0.5 mg/dL (0.0-1.4); BUN 12 mg/dL (7-17); BUN/CREATININE RATIO 20 (12-20 (CALC)); CARBON DIOXIDE 24 mmol/l (22-30); CHLORIDE 101 mmol/l (95-108); CREATININE 0.6 mg/dL (0.5-1.0); GFR > 60 ML/MIN (>=60 (CALC)); GFR FOR AFR.AMER. > 60 ML/MIN (>=60 (CALC)); LIPASE 44 u/l (23-300); SGOT/AST 41 u/l (14-36); SODIUM 133 mmol/l (137-146); TOTAL PROTEIN 7.7 g/dL (6.3-8.2)
[2020-02-28 13:29] LABS: ANION GAP 12 (6-22 (CALC)); POTASSIUM 3.6 mmol/l (3.5-5.1)
[2020-02-28 15:35] VITALS: BP 131/72
== END 2020-02-28 15:20 | disposition home or self-care (01) | DRG 392 ==
LOC: ED 11:57
PROVIDERS: Family Medicine
PROC: 02HV33Z Insertion of Infusion Device into Superior Vena Cava, Percutaneous Approach (ICD-10-PCS; principal; 2020-02-28)
DX: R10.12 Left upper quadrant pain (principal); F17.210 Nicotine dependence, cigarettes, uncomplicated
CPT/HCPCS: Q9967

== ENCOUNTER 2020-03-03 10:02 | Emergency (ER) | payer SELFPAY ==
[~2020-03-03] VITALS: Ht 162.6 cm; Wt 68.0 kg
[2020-03-03 11:07] LABS: URINE BILIRUBIN - DIPSTICK NEGATIVE (NEGATIVE); URINE BLOOD DIPSTICK NEGATIVE (NEGATIVE); URINE COLOR YELLOW; URINE GLUCOSE - DIPSTICK NEGATIVE (NEGATIVE); URINE KETONE NEGATIVE (NEGATIVE); URINE LEUK ESTERASE NEGATIVE (NEGATIVE); URINE NITRITE - DIPSTICK NEGATIVE (Negative); URINE PH 6.5 (4.5-8.0); URINE PROTEIN - DIPSTICK NEGATIVE (NEG-TRACE)
[2020-03-03 11:18] LABS: HEMATOCRIT 34.7 % (37.0-47.0); HEMOGLOBIN 10.8 g/dl (12.0-16.0); IMMATURE GRANULOCYTES 0.6 % (0.0-5.0); MEAN CELL VOLUME 78.7 fL CALC (80.0-100.0); MEAN CORPUSCULAR HGB 24.5 pG CALC (26.0-32.0); MEAN CORPUSCULAR HGB CONC 31.1 g/dL CAL (32.0-36.0); NEUT# 7.89 thou/uL (2.00-7.15); RED BLOOD COUNT 4.41 mill/uL (4.20-5.60); RED CELL DISTRI WIDTH 13.6 % (11.5-15.5)
[2020-03-03 11:34] LABS: ALKALINE PHOSPHATASE 115 u/l (38-126); AMYLASE 81 u/l (30-110); ANION GAP 13 (6-22 (CALC)); BILIRUBIN, TOTAL 0.7 mg/dL (0.0-1.4); BUN 11 mg/dL (7-17); BUN/CREATININE RATIO 18 (12-20 (CALC)); CARBON DIOXIDE 26 mmol/l (22-30); CHLORIDE 99 mmol/l (95-108); CREATININE 0.6 mg/dL (0.5-1.0); GFR > 60 ML/MIN (>=60 (CALC)); GFR FOR AFR.AMER. > 60 ML/MIN (>=60 (CALC)); LIPASE 44 u/l (23-300); POTASSIUM 3.6 mmol/l (3.5-5.1); SGOT/AST 28 u/l (14-36); SODIUM 133 mmol/l (137-146); TOTAL PROTEIN 8.3 g/dL (6.3-8.2)
[2020-03-03] MEDS ORDERED: ONDANSETRON4 MG PO (12:55)
[2020-03-03] MEDS ORDERED: MIRALAX3350 N1 PO (12:55)
[2020-03-03] MEDS ORDERED: NAPROXEN500 MG PO (12:55)
[2020-03-03 13:17] VITALS: BP 130/79
== END 2020-03-03 13:17 | disposition home or self-care (01) | DRG 392 ==
LOC: ED 10:02
PROVIDERS: Emergency Medicine
DX: K59.00 Constipation, unspecified (principal); F19.10 Other psychoactive substance abuse, uncomplicated; F17.210 Nicotine dependence, cigarettes, uncomplicated; Z86.718 Personal history of other venous thrombosis and embolism

== ENCOUNTER 2020-12-26 20:52 | Emergency (ER) | payer MEDICAID ==
[~2020-12-26] VITALS: Ht 162.6 cm; Wt 68.0 kg
[~2020-12-26 20:52] MED LIST changes: +MIRALAX3350 N1 PO; +NAPROXEN500 MG PO; +ONDANSETRON4 MG PO
[2020-12-26 21:20] VITALS: BP 130/66
[2020-12-26] MEDS ORDERED: OXYFAST (22:07)
[2020-12-26] MEDS ORDERED: VANCOMYCIN HCL250 M1 (22:08)
[2020-12-26] MEDS ORDERED: SUBUTEX (22:08)
== END 2020-12-26 22:47 | disposition left against medical advice (07) ==
LOC: ED 20:52
DX: S89.91XA Unspecified injury of right lower leg, initial encounter (principal); F17.200 Nicotine dependence, unspecified, uncomplicated; V89.9XXA Person injured in unspecified vehicle accident, initial encounter; Z91.19 Patient's noncompliance with other medical treatment and regimen

== ENCOUNTER 2022-07-16 22:30 | Emergency (ER) | payer OTHER, MEDICAID ==
[~2022-07-16 22:30] MED LIST changes: +OXYFAST; +SUBUTEX; +VANCOMYCIN HCL250 M1
[2022-07-17] MEDS ORDERED: ONDANSETRON4 MG PO (21:41)
== END 2022-07-16 22:45 | disposition left against medical advice (07) | DRG 951 ==
LOC: ED 22:30 → LWOBS 22:45
DX: Z53.21 Procedure and treatment not carried out due to patient leaving prior to being seen by health care provider (principal)

== ENCOUNTER 2022-07-17 18:32 | Emergency (ER) | payer OTHER ==
[~2022-07-17] VITALS: Ht 162.6 cm; Wt 77.0 kg
[2022-07-17 19:34] VITALS: BP 126/81
[2022-07-17 19:45] VITALS: BP 125/81
[2022-07-17 20:00] VITALS: BP 113/70
[2022-07-17 20:15] VITALS: BP 119/82
[2022-07-17 21:29] VITALS: BP 119/82
[2022-07-17] MEDS ORDERED: ONDANSETRON4 MG PO (21:41)
== END 2022-07-17 21:43 | disposition home or self-care (01) ==
LOC: ED 18:32
DX: N93.9 Abnormal uterine and vaginal bleeding, unspecified (principal); F17.200 Nicotine dependence, unspecified, uncomplicated; Z86.718 Personal history of other venous thrombosis and embolism

== ENCOUNTER 2024-04-06 16:52 | Emergency (ER) | payer SELFPAY ==
[2024-04-06] VITALS (11 sets, daily range): BP systolic 127–150; BP diastolic 68–97
[~2024-04-06] VITALS: Ht 162.6 cm; Wt 81.0 kg
[2024-04-06] MEDS ORDERED: SODIUM CHLORIDE 0.9% 1,000 ML IV ONE ×2 (17:35)
[2024-04-06] MEDS ORDERED: DiphenhydrAMINE HCL 50 MG/ML SDV IV ONE (17:40)
[2024-04-06] MEDS ORDERED: METOCLOPRAMIDE HCL 10 MG/2 ML SDV IV ONE (17:40)
[2024-04-06 18:11] LABS: BASO% 0.2 % (0-3); HEMATOCRIT 39.3 % (37.0-47.0); HEMOGLOBIN 12.5 g/dl (12.0-16.0); IMMATURE GRANULOCYTES 0.4 % (0.0-5.0); LYMPH% 23.5 % (15-41); MEAN CELL VOLUME 75.6 fL CALC (80.0-100.0); MEAN CORPUSCULAR HGB CONC 31.8 g/dL CAL (32.0-36.0); MONO% 6.7 % (2-13); NEUT# 11.73 thou/uL (2.00-7.15); NEUT% 68.2 % (42-76); RED BLOOD COUNT 5.2 mill/uL (4.20-5.60); RED CELL DISTRI WIDTH 16.1 % (11.5-15.5)
[2024-04-06 18:15] LABS: ALBUMIN 4.6 g/dL (3.2-5.0); ALKALINE PHOSPHATASE 147 u/l (38-126); ANION GAP 13 (6-22 (CALC)); BUN 20 mg/dL (7-17); BUN/CREATININE RATIO 27 (12-20 (CALC)); CARBON DIOXIDE 26 mmol/l (22-30); CHLORIDE 101 mmol/l (95-108); CREATININE 0.8 mg/dL (0.5-1.0); ESTIMATED GFR 98 ML/MIN (>=90 (CALC)); LIPASE 70 u/l (23-300); SGOT/AST 36 u/l (14-36); SODIUM 137 mmol/l (137-146)
[2024-04-06 18:21] LABS: POTASSIUM 3.1 mmol/l (3.5-5.1)
[2024-04-06] MEDS ORDERED: MORPHINE SULFATE 4 MG/ML VIAL IV ONE ×2 (19:25→23:05)
[2024-04-06] MEDS ORDERED: ONDANSETRON HCl 4 MG/2 ML SDV IV ONE (19:25)
[2024-04-06] MEDS ORDERED: Levofloxacin 750 mg Premix 150 ML IV ONE (19:30)
[2024-04-06 23:06] LABS: URINE BILIRUBIN - DIPSTICK Negative (NEGATIVE); URINE BLOOD DIPSTICK Moderate (NEGATIVE); URINE GLUCOSE - DIPSTICK Negative (NEGATIVE); URINE KETONE Negative (NEGATIVE); URINE LEUK ESTERASE Negative (NEGATIVE); URINE NITRITE - DIPSTICK Negative (Negative); URINE PROTEIN - DIPSTICK Negative (NEG-TRACE); URINE SPECIFIC GRAVITY 1.015
[2024-04-06 23:11] LABS: URINE COLOR Yellow
[2024-04-06 23:14] LABS: URINE MUCUS FEW hpf (NONE-FEW); URINE SQUAMOUS EPITHELIAL CELL FEW EPI/hpf (0-FEW); URINE WBC 0-2 WBC/hpf (0-5)
== END 2024-04-06 23:30 | disposition left against medical advice (07) | DRG 392 ==
LOC: ED 16:52
PROVIDERS: Emergency Medicine
PROC: 02HV33Z Insertion of Infusion Device into Superior Vena Cava, Percutaneous Approach (ICD-10-PCS; principal; 2024-04-06)
DX: R10.9 Unspecified abdominal pain (principal); M54.2 Cervicalgia; G89.29 Other chronic pain; F19.10 Other psychoactive substance abuse, uncomplicated; F17.200 Nicotine dependence, unspecified, uncomplicated; Z86.718 Personal history of other venous thrombosis and embolism; Z53.29 Procedure and treatment not carried out because of patient's decision for other reasons; Z20.822 Contact with and (suspected) exposure to COVID-19
CPT/HCPCS: Q9967